=== PATIENT | male | born 1970 | race American Indian/Alaskan Native ===

== ENCOUNTER 2019-06-27 10:07 | Emergency (ER) | payer MEDICAID ==
[~2019-06-27] VITALS: Ht 177.8 cm; Wt 86.2 kg
== END 2019-06-27 11:58 | disposition left against medical advice (07) ==
LOC: ED 10:07
DX: S02.2XXA Fracture of nasal bones, initial encounter for closed fracture (principal); S00.12XA Contusion of left eyelid and periocular area, initial encounter; F17.200 Nicotine dependence, unspecified, uncomplicated; W21.03XA Struck by baseball, initial encounter
CPT/HCPCS: 70486; 73130; 99284-25

== ENCOUNTER 2019-06-27 17:56 | Emergency (ER) | payer MEDICAID ==
[~2019-06-27] VITALS: Ht 177.8 cm; Wt 86.2 kg
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
== END 2019-06-27 18:48 | disposition home or self-care (01) ==
LOC: ED 17:56
DX: S02.2XXA Fracture of nasal bones, initial encounter for closed fracture (principal); S00.12XA Contusion of left eyelid and periocular area, initial encounter; F17.200 Nicotine dependence, unspecified, uncomplicated; W21.03XA Struck by baseball, initial encounter
CPT/HCPCS: 99283